=== PATIENT | female | born 2000 | race Caucasian/White ===

== ENCOUNTER 2024-11-23 09:28 | Emergency (ER) | payer BC, SELFPAY ==
[2024-11-23 09:33] VITALS: BP 149/86; PULSE 70; RESP 16; TEMP 36.4; O2SAT 100
--- OUTSIDE RECORDS SUMMARY | 2024-11-23 09:40 | XMS_ITS | Clinical Summary ---
Author Organization [facility] Address [address] [place] [address] Phone Care Team Providers Care Welfare Specialist Name Role Phone Unavailable Primary Care Provider Unavailabl e Allergies Active Allergy Reactions Criticality Noted Date Comments Nut Flavor Anaphylaxis High 07/13/2017 Medications PROAIR HFA 90 mcg/actuation inhaler INHALE 1-2 PUFFS PRIOR TO OR DURING EXERCISE FOR SHORTNESS OF BREATH 0 7 Active erythromycin (E-MYCIN) 250 mg tablet Take 250 mg by mouth. 0 Active clindamycin phosphate (CLEOCIN T) 1 % Gel APPLY TO AFFECTED AREA EVERY DAY 0 Active venlafaxine 37.5 mg Extended Release 24 hour tablet Take 37.5 mg by mouth. 0 Active spironolactone (ALDACTONE) 50 mg tablet Take 50 mg by mouth daily. Active sertraline (ZOLOFT) 25 mg tablet Take 25 mg by mouth daily. Active norgestimate-et hinyl estradioL 0.25 mg-35 mcg tablet Take 1 Tablet by mouth. 8 Active ondansetron (ZOFRAN) 4 mg Tablet Take 1 Tablet (4 mg) by mouth every 8 hours as needed for Nausea. 15 Tablet 0 Active Active Problems Problem Noted Date Diagnosed Date Exercise-induced asthma 07/13/2017 Immunizations Immunization Administration Dates Next Due (ADACEL/BOOSTRIX)(10 YR UP) TDAP VACCINE, 0.5ML, IM 05/05/2010 (INFANRIX)(6 WKS-6 YRS) DIPT HERIA, TETANUS TOXOIDS, AND ACCELLULAR PERTUSSIS VACCINE (DTAP), 0.5 ML IM 05/21/2004,03/31/2000,05/07/1999,03/12,01/08/1999 (IPOL)(6 WKS AND UP) POLIOVI AYAZ VACCINE, INACTIVATED (IPV), 3 DOSE, SUBCUT OR IM 05/21/2004,03/31/2000,05/07/1999,03/10 (M-M-R II/PRIORIX)(12 MO UP) MEASLES, MUMPS AND RUBELLA VIRUS VACCINE, 0.5 ML IM/SUBCUT 06/25/2007,11/12/1999 (ROTATEQ)(6-32 WKS) ROTAVIRU S LIVE, PENTAVALENT, 2 ML, 3 DOSE, ORAL 03/12/1999,01/08/1999 (VARIVAX)(12 MOS UP)VARICELL A VIRUS VACCINE (PF) 0.5 ML, SUB CUT 06/25/2007,11/12/1999 HIB, Unspecified Formulation 03/31/2000, 05/07/1999,03/12/1999,01/08 Hepatitis B Vaccine 07/30/1999,01/08/1999,1998 Meningococcal ACWY Vaccine, Unspecified Formulation 05/05/2010 Family History Relation Name Status Comments Brother 1 Alive Brother 2 Alive Father Alive Mother Alive Social History Tobacco Use Types Packs/Day Years Used Date Smoking Tobacco: Never Smokeless Tobacco: Never Alcohol Use Standard Drinks/Week Comments No 0 (1 standard drink = 0.6 oz pur e alcohol) Comments No Sex and Gender Information Value Date Recorded Sex Assigned at Not on file 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 Gender Identity Not on file Sexual Orientation Not on file Occupation Industry Job Start Date Job End Date Not on file Not on file Not on file Not on file Last Filed Vital Signs Vital Sign Reading Time Taken Comments Blood Pressure 114/74 07/03/2020 9:30 PM CDT Pulse 87 07/03/2020 9:30 PM CDT Temperature 37.5 C (99.5 F) 07/03/2020 9:30 PM CDT Respiratory Rate 18 07/03/2020 9:30 PM CDT Oxygen Saturation 99% 07/03/2020 9:30 PM CDT Inhaled Oxygen Concentration - - Weight 54.4 kg (120 lb) 07/03/2020 5:00 PM CDT Height 160 cm (5' 3 ) 07/03/2020 5:00 PM CDT Body Mass Index 21.26 07/03/2020 5:00 PM CDT Plan of Treatment Health Maintenance Due Date Last Done Comments PNEUMOCOCCAL VACCINE 0-64 YE ARS (1 of 2 - PCV) 2017 CERVICAL CANCER SCREENING 2019 DTAP/TDAP/TD VACCINES (7 - T d or Tdap) 05/05/2020 05/05/2010, 05/21/2004, 05/21/2004, Additional history exists INFLUENZA VACCINE (#1) 2024 HEPATITIS B VACCINES Completed 07/30/1999, 01/08/1999, 1998 HPV VACCINES Completed 04/28/2017, 07/18, 04/22/2016 Insurance MEDICAID [place] AETNA CHOICE POS II
--- OUTSIDE RECORDS SUMMARY | 2024-11-23 09:40 | XMS_ITS | Encounter Summary ---
Author Organization [facility] Address [address] Attn: Epic Prelude ADT ADY [place]ASILVA [address] Care Team Providers Care Ironer Or Presser Name Role Phone Sal Townsend DO Primary Care Provider Unavail able Encounter Details Date Type Department Care Team (Late st Contact Info) Description 1998 Inpatient Historical Ai Negron MD [address] [place] [id number] Single liveborn, born in hospital, delivered without mention of delivery (Primary Dx) Social History Tobacco Use Types Packs/Day Years Used Date Smoking Tobacco: Never Assessed Comments Unknown Sex and Gender Information Value Date Recorded Sex Assigned at Not on file 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 Gender Identity Not on file Sexual Orientation Not on file documented as of this encounter Plan of Treatment Not on file documented as of this encounter Visit Diagnoses Diagnosis Single liveborn, born in hospital, delivered without mention of delivery- Primary documented in this encounter Additional Health Concerns Infection Onset Date Last Indicated Resolved Time R/O COVID-19 07/03/2020 07/03/2020 07/03/2020 9:04 PM CDT documented as of this encounter Care Teams Ironer Or Presser Relationship Specialty Start Date End Date Sal Townsend DO PCP - General Pediatrics 12/15/10 05/07/15 documented as of this encounter
--- OUTSIDE RECORDS SUMMARY | 2024-11-23 09:40 | XMS_ITS | Clinical Summary ---
Author Organization [facility] Address [address] [place] [address] Care Team Providers Care Client Account Representative Name Role Phone Unavailable Primary Care Provider Unavailabl e Allergies Active Allergy Reactions Criticality Noted Date Comments Cashew Nut Oil Unknown 07/18/2018 Nuts Unknown 05/29/2016 Sesame Oil Unknown 07/18/2018 Medications cetirizine (ZYRTEC ALLERGY) 10 MG tablet Take 1 tablet by mouth daily as needed. 7 Active EPINEPHrine 0.3 MG/0.3ML injection Administer as needed for allergic reaction 6 Active norgestimate-eth inyl estradiol (SPRINTEC 28) 0.25-35 MG-MCG tablet Take 1 tablet by mouth daily. 8 Active tretinoin 0.1 % creamIndications :Acne, unspecified acne type Apply topically nightly at bedtime. 45 g 2 9 Active clindamycin 1 % gelIndications:A cne vulgaris APPLY TO AFFECTED AREA EVERY DAY 60 g 1 0 Active albuterol sulfate HFA (PROAIR HFA) 108 (90 Base) MCG/ACT inhalerIndicatio ns:Exercise-grant lynnette asthma ([facility]) Inhale 2 puffs into the lungs every 8 (eight) hours as needed for Wheezing or Shortness of breath. 1 Inhaler 3 0 Active [employer] ACNE FACE WASH 10 % LiquidIndication s:Acne vulgaris APPLY 1 APPLICATION TOPICALLY NIGHTLY. 187 g 2 1 Active ERYTHROMYCIN BASE 250 MG tabletIndication s:Acne vulgaris TAKE 1 TABLET BY MOUTH TWICE A DAY 60 tablet 2 03/15/202 1 Active VENLAFAXINE XR 37.5 MG 24 hr capsuleIndicatio ns:Anxiety TAKE 1 CAPSULE BY MOUTH EVERY DAY WITH BREAKFAST 30 capsule 2 1 Active Active Problems Problem Noted Date Diagnosed Date Exercise-induced asthma (HHS/HCC) 07/13/2017 Achilles tendinitis 04/28/2017 Nut allergy 04/22/2016 Resolved Problems Problem Noted Date Diagnosed Date Resolved Date Normal routine physical examination 05/06/2015 06/28/2020 Immunizations Name Administration Dates Next Due DTaP (Daptacel) 03/12/1999,01/08/1999 DTaP-IPV/Hib (Pentacel) 03/31/2000,05/07/1999 Dtap (Generic) 05/21/2004,03/31/2000,05/07/1999 HPV GARDASIL 9-VALENT 04/28/2017 HPV4 (Gardasil) 07/27/2016,04/22/2016 Hepatitis A (Generic) 07/27/2016,07/27/2016,04/18,05/06/2015 Hepatitis B (Generic: Adult) 07/30/1999, 07/30/1999,01/08/1999,01/08/1999 ,1998,1998 Hib (Generic) 03/31/2000,05/07/1999 Hib (PedvaxHIB)3 Dose 03/12/1999,01/08/1999 MMR 06/25/2007,11/12/1999 Menactra 05/06/2015 Meningococcal Vac A,C,Y,W-135 Sc 05/05/2010 Meningococcal(Mcv 4)Aka Menactra 05/05/2010 Polio IPV (Ipol) 03/10/1999 Polio Ipv (Generic) 05/21/2004,03/31/2000,1998,03/10/1999 Rotavirus (Rotarix) 03/12/1999,01/08/1999 Tdap (Generic) 05/05/2010 Varicella Vaccine 06/25/2007,11/12/1999 Family History Medical History Relation Comments UNKNOWN Father Anxiety Mother Depression Mother Relation Status Comments Father Alive Mother Alive Social History Tobacco Use Types Packs/Day Years Used Date Smoking Tobacco: Never Smokeless Tobacco: Never Alcohol Use Standard Drinks/Week Comments No 0 (1 standard drink = 0.6 oz pur e alcohol) AUDIT-C Answer Date Recorded Frequency of Alcohol Consumption Never 06/13/2019 Average Number of Drinks Not on file 019 Frequency of Binge Drinking Not on file 05/19 PHQ-2 Answer Date Recorded PHQ-2 Score 6 10/06/2019 Education Answer Date Recorded What is the highest level of school you have completed or the highest degree you have received? Some college, no degree 10/06/2019 Comments No Sex and Gender Information Value Date Recorded Sex Assigned at Female 10/06/2019 8:03 AM ADVANCED NURSING PROFESSOR Legal Sex Female 8:26 PM CDT Gender Identity Female 10/06/2019 8:03 AM ADVANCED NURSING PROFESSOR Sexual Orientation Straight 10/06/2019 8: 03 AM ADVANCED NURSING PROFESSOR Last Filed Vital Signs Vital Sign Reading Time Taken Comments Blood Pressure 110/72 03/27/2020 8:42 AM CDT Pulse 98 03/27/2020 8:42 AM CDT Temperature 36.7 C (98.1 F) 03/27/2020 8:42 AM CDT Respiratory Rate 16 03/27/2020 8:42 AM CDT Oxygen Saturation 96% 03/27/2020 8:42 AM CDT Inhaled Oxygen Concentration - - Weight 59.1 kg (130 lb 3.2 oz) 03/27/2020 8:42 A M CDT Height 160 cm (5' 3 ) 03/27/2020 8:42 AM CDT Body Mass Index 23.06 03/27/2020 8:42 AM CDT Plan of Treatment Health Maintenance Due Date Last Done Comments Cervical Cancer Screening Pap Smear (Age 21 to 29) Every 3 Years 1998 Cervical Cancer Screening 1998 Annual Physical 2001 Pneumococcal Vaccine: Pediatrics (0 to 5 Years) and At-Risk Patients (6 to 64 Years) (1 of 2 - PCV) 2004 Hepatitis C 2016 DTaP, Tdap and Td Vaccines (7 - Td or Tdap) 05/05/2020 05/05/2010, 05/21/2004, 03/31/2000, Additional history exists COVID-19 Vaccine ( - 2023- season) 2024 Influenza Adult (#1) 2024 Hepatitis B Vaccines Completed 07/30/1999, 07/30/1999, 01/08/1999, Additional history exists Meningococcal Vaccine Completed 05/06/2015, 010 HPV Vaccines Completed 04/28/2017, 07/18, 04/22/2016 Meningococcal B Vaccine Aged Out No l onger eligible based on patient's age to complete this topic RSV Immunizations Under 20 Months Aged Out No longer eligible based on patient's age to complete this topic Insurance MEDICAID AETNA
--- OUTSIDE RECORDS SUMMARY | 2024-11-23 09:40 | XMS_ITS | Encounter Summary ---
Author Organization [facility] Address [address] [place] [address] Care Team Providers Care Mattress Weaver Name Role Phone Sal Townsend DO Primary Care Provider Unavail able Encounter Details Date Type Department Care Team (Late st Contact Info) Description 1998 Outpatient Historical [facility] Pediatrics - Medical [address] [address] [address] Ai Negron MD 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
[2024-11-23 10:34] LABS: BEDSIDEPREGUCG Negative (Negative)
[2024-11-23 10:51] LABS: Add Urine Microscopic? YES; Appearance Urine Clear (Clear); Bacteria Urine None Seen /hpf; Bilirubin Urine Negative (Negative); Blood Urine 3+ (Negative); Color Urine Yellow (Yellow); Glucose Urine UA Negative (Negative); Ketones Urine Negative (Negative); Leukocyte Esterase Ur Negative LEU/UL (Negative); Nitrate Urine Negative (Negative); Non Pathogenic Casts 0-2; Protein Urine Negative (Negative); RBC Urine 0-2 /hpf (0-2); Specific Grav Ur 1.008 (1.001-1.035); Squamous Epithelial Cell Urine Occasional /hpf (Few); Urobilinogen Urine 0.2 mg/dL (<2.0); WBC Urine 0-5 /hpf (0-3); pH Urine 6.5 (5.0-9.0)
--- OUTSIDE RECORDS SUMMARY | 2024-11-23 12:44 | XMS_ITS | Encounter Summary ---
Author Organization [facility] Address [address] [place] [address] Care Team Providers Care Drill Press Set Up Operator Name Role Phone Sal Townsend DO Primary Care Provider Unavail able Encounter Details Date Type Department Care Team (Late st Contact Info) Description 1998 Outpatient Historical [facility] Pediatrics - Medical [place] [address] [address] Ai Negron MD 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
--- OUTSIDE RECORDS SUMMARY | 2024-11-23 12:44 | XMS_ITS | Clinical Summary ---
Author Organization 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
--- OUTSIDE RECORDS SUMMARY | 2024-11-23 12:44 | XMS_ITS | Encounter Summary ---
Author Organization [facility] Address [address] Attn: Epic Prelude ADT ADY DASILVA [address] Care Team Providers Care Boarding House Manager Name Role Phone Sal Townsend DO Primary Care Provider Unavail able Encounter Details Date Type Department Care Team (Late st Contact Info) Description 1998 Inpatient Historical Ai Negron MD [address] [place] [phone] Single liveborn, born in hospital, delivered without mention of delivery (Primary Dx) Social History Tobacco Use Types Packs/Day Years Used Date Smoking Tobacco: Never Assessed Comments Unknown Sex and Gender Information Value Date Recorded Sex Assigned at Not on file Legal Sex Female 3:00 AM MORNING NANNY Gender Identity Not on file Sexual Orientation [...] documented as of this encounter Care Teams Boarding House Manager Relationship Specialty Start Date End Date Sal Townsend DO PCP - General Pediatrics 12/15/10 05/07/15 documented as of this encounter
--- OUTSIDE RECORDS SUMMARY | 2024-11-23 12:44 | XMS_ITS | Clinical Summary ---
Author Organization [facility] Address [address] [place] [address] Care Team Providers Care Cellar Worker Name Role Phone Unavailable Primary Care Provider [...] (90 Base) MCG/ACT inhalerIndicatio ns:Exercise-grant lynnette asthma ([facility]) Inhale 2 puffs into the lungs every [...] Sex Assigned at Female 10/06/2019 8:03 AM COMPOSITION TILE LAYER Legal Sex Female 8:26 PM CDT Gender Identity Female 10/06/2019 8:03 AM COMPOSITION TILE LAYER Sexual Orientation Straight 10/06/2019 8: 03 AM COMPOSITION TILE LAYER Last Filed Vital Signs Vital Sign Reading [...]
--- NOTE | 2024-11-23 13:04 | ED_ITS ---
HPI - Female Genitourinary General Chief complaint: Vaginal Bleeding Stated complaint: unsure if heavy period or if having miscarriage Time Seen by Provider: 11/23/24 12:23 History of Present Illness HPI Narrative: 24-year-old otherwise healthy female presenting to the emergency department for evaluation of bright red vaginal bleeding and concern for possible . Patient recently finished control medication approximately 3 months prior and was previously regular on a estrogen containing control that she takes 3 weeks with a week of placebo. she has since finished taking this and no longer on it. She was concerned that she could be and did have sexual intercourse. She had 1 positive test that was done 5 days ago but since then has had multiple negative test. She has been having some abnormal vaginal bleeding with thick foul-smelling discharge but denies any fever, chills or urinary complaints. No clot passage or tissue passage. She has no abdominal complaints such as pain or cramping. Patient has not seen an OBGYN or had a previous to her knowledge. She is concerned she might have had a miscarriage and she previously was very regular with her cycles for last 3-4 months after her control. No history of fibroids or dysfunctional uterine bleeding. Related Data Allergies Allergy/AdvReac Type Severity Reaction Status Date / Time No Known Allergies Allergy Verified 11/23/24 09:29 Review of Systems 2 Review of Systems: as reviewed above in HPI Exam 2 Narrative: GENERAL: [Well-appearing, well-nourished, and in no acute distress.] HEAD: [Normocephalic, atraumatic.] EYES: [PERRLA and EOMI.] ENT: Nares clear, no rhinorrhea or epistaxis. Mucous membranes moist. NECK: Supple. CHEST: [Clear to auscultation. No respiratory distress.] HEART: [Regular rate and rhythm]. No murmur heard. [Normal peripheral pulses.] ABDOMEN: [Soft, nondistended], [nontender], [No rigidity or guarding] EXTREMITIES: Normal range of motion. [No edema.] SKIN: Warm, dry, no rash. NEURO: [No focal deficits]. Alert and oriented [x3.] PSYCH: [Normal mood and affect.] Course Vital Signs Vital signs: Vital Signs Temperature 36.4 C L 11/23/24 09:33 Pulse Rate 70 11/23/24 09:33 Respiratory Rate 16 11/23/24 09:33 Blood Pressure 149/86 H 11/23/24 09:33 Pulse Oximetry 100 11/23/24 09:33 Oxygen Delivery Room Air 11/23/24 09:33 Temperature 37.0 C 11/23/24 15:17 Pulse Rate 53 L 11/23/24 15:17 Respiratory Rate 18 11/23/24 15:17 Blood Pressure 124/79 11/23/24 15:17 Pulse Oximetry 100 11/23/24 15:17 Oxygen Delivery Room Air 11/23/24 09:33 MDM - Female Genitourinary MDM Narrative Medical decision making narrative: 24-year-old otherwise healthy female presenting with dysfunctional uterine bleeding symptoms, foul discharge and concern for possible . She had a positive test 5 days ago but since then has been multiple negative test. Has had intercourse and is concerned she might have had a miscarriage or . No abdominal pain or cramping. Her periods have usually been very regular but today she has been having for 3 days of heavy vaginal bleeding without clot passage. No history of fibroids or dysfunctional uterine bleeding. Her cycle is off cycle at this time. examination is reassuring, no vital concerns such as fever, hypoxia, tachycardia or significant blood pressure elevations. Urine test was negative, urinalysis without signs of infection. Blood work was obtained including a serum test given the uncertainty of her previous tests as well as a CBC and CMP. Laboratory studies showed no leukocytosis or anemia. Negative serum beta hCG level. Normal renal function. Went over and discussed the results with the patient and recommendations at this time for OBGYN outpatient evaluation for potential abnormal or dysfunctional uterine bleeding. Patient was comfortable with this plan of care and was stable for discharge home at this time with OBGYN referral. She was given return precautions. Medical Records Attestation: I reviewed the patient's medical records. Lab Data Attestation: I reviewed the patient's lab results. 11/23/24 13:13 11/23/24 13:13 Labs: Lab Results 11/23/24 11/23/24 11/23/24 Range/Units 10:25 10:29 13:13 WBC 5.5 (4.5-10.0) K/mm3 RBC 4.46 (4.2-5.4) M/mm3 Hgb 12.9 (12.0-15.0) g/dL Hct 38.2 (37.0-47.0) % MCV 85.7 (80-100) fl MCH 28.9 (26-34) pg MCHC 33.8 (32-36) g/dl RDW 13.1 (11.5-14.5) % Plt Count 264 (150-375) k/mm3 MPV 10.9 H (7.4-10.4) fl Immature Gran % (Auto) 0.2 (0-0.5) % Neut % (Auto) 46.4 (45.5-73.1) % Lymph % (Auto) 47.1 H (18.3-44.2) % [place] % (Auto) 5.6 (2.6-8.5) % Eos % (Auto) 0.5 (0-4.4) % Baso % (Auto) 0.2 (0.2-1.2) % Lymph # (Auto) 2.61 (0.9-3.2) K/mm3 [place] # (Auto) 0.3 (0.1-0.6) K/mm3 Eos # (Auto) 0.0 (0-0.3) K/mm3 Baso # (Auto) 0.0 (0.0-0.1) K/mm3 Abs Immat Gran (auto) 0.01 (0.00-0.031) K/mm3 Absolute Neuts (auto) 2.6 (1.3-6.7) K/mm3 Absolute Nucleated RBC 0.000 (0.0-0.012) K/mm3 Nucleated RBC % 0.0 (0.0-0.2) % Sodium 141 (137-145) mmol/L Potassium 3.9 (3.4-5.0) mmol/L Chloride 105 (98-107) mmol/L Carbon Dioxide 23 (22-30) mmol/L Anion Gap 13 H (4-12) mmol/L BUN 8 (7-17) mg/dL Creatinine 0.63 L (0.7-1.0) mg/dL Estim Creat Clear Calc 91 ml/min Estimated GFR > 60 (59 - ) Glucose 89 (65-110) mg/dL Calcium 9.4 (8.4-10.2) mg/dL Total Bilirubin 0.5 (0.2-1.3) mg/dL AST 26 (14-36) U/L ALT 20 (6-35) U/L Alkaline Phosphatase 47 (38-126) U/L Total Protein 8.0 (6.3-8.2) g/dL Albumin 4.7 (3.5-5.1) g/dL Serum HCG, Qual Negative Urine Color Yellow (Yellow) Urine Appearance Clear (Clear) Urine pH 6.5 (5.0-9.0) Ur Specific [place] 1.008 (1.001-1.035) Urine Protein Negative (Negative) mg/dL Urine Glucose (UA) Negative (Negative) mg/dL Urine Ketones Negative (Negative) mg/dL Ur Blood (Man) 3+ H (Negative) Urine Nitrate Negative (Negative) Urine Bilirubin Negative (Negative) Urine Urobilinogen 0.2 (<2.0) mg/dL Leukocyte Esterase Rfl Negative (Negative) IVETT/UL Urine RBC 0-2 (0-2) /hpf Urine WBC 0-5 (0-3) /hpf Ur Squamous Epith Cells Occasional (Few) /hpf Urine Bacteria None seen /hpf Urine Casts 0-2 POC Urine HCG, Qual Negative (Negative) Discharge Plan Discharge Clinical Impression: Dysfunctional uterine bleeding Patient Disposition: Home, Self-Care Condition: Stable Instructions: Antibiotic Form, Abnormal (Dysfunctional) Uterine Bleeding (ED), Dysmenorrhea (ED) Additional Instructions: You had a negative test, your labs are very good and did not show any significant blood loss or any concerns at this time. Please establish with an OBGYN for further care and re-evaluation. Return with any new or worsening concerns. Patient Language: Colombian Follow-up/Referrals: Mirian Fuller MD [Physician] - 1 Week ( abnormal uterine bleeding) UNKNOWN,DOCTOR [Primary Care Provider] - Time of Disposition: 15:06
[2024-11-23 13:07] VITALS: BP 139/82; PULSE 54; RESP 18; O2SAT 100
[2024-11-23 13:25] LABS: Basophils Percent Auto 0.2 % (0.2-1.2); Eosinophils Percent Auto 0.5 % (0-4.4); Hematocrit 38.2 % (37.0-47.0); Hemoglobin 12.9 g/dL (12.0-15.0); Immature Granulocyte Absolute 0.01 K/mm3 (0.00-0.031); Immature Granulocyte Percent A 0.2 % (0-0.5); Lymphocytes Absolute Auto 2.61 K/mm3 (0.9-3.2); Lymphocytes Percent Auto 47.1 % (18.3-44.2); Mean Corpuscular HGB Conc 33.8 g/dl (32-36); Mean Corpuscular Hemoglobin 28.9 pg (26-34); Mean Corpuscular Volume 85.7 fl (80-100); Mean Platelet Volume 10.9 fl (7.4-10.4); Monocytes Absolute Auto 0.3 K/mm3 (0.1-0.6); Monocytes Percent Auto 5.6 % (2.6-8.5); Neutrophils Absolute Auto 2.6 K/mm3 (1.3-6.7); Neutrophils Percent Auto 46.4 % (45.5-73.1); Platelet Count Result 264 k/mm3 (150-375); Red Blood Count 4.46 M/mm3 (4.2-5.4); Red Cell Distribution Width 13.1 % (11.5-14.5); White Blood Count 5.5 K/mm3 (4.5-10.0)
[2024-11-23 13:37] LABS: Alanine Aminotransferase 20 U/L (6-35); Albumin Level 4.7 g/dL (3.5-5.1); Alkaline Phosphatase 47 U/L (38-126); Anion Gap 13 mmol/L (4-12); Aspartate Amino Transferase 26 U/L (14-36); Bilirubin,Total 0.5 mg/dL (0.2-1.3); Blood Urea Nitrogen 8 mg/dL (7-17); Calcium 9.4 mg/dL (8.4-10.2); Carbon Dioxide 23 mmol/L (22-30); Chloride 105 mmol/L (98-107); Estimated CRCL calculation 91 ml/min; Estimated Glomerular Filt Rate > 60; Glucose 89 mg/dL (65-110); Potassium 3.9 mmol/L (3.4-5.0); Sodium 141 mmol/L (137-145)
[2024-11-23 13:44] LABS: SPREG INTERNAL CONTROL Positive; Serum Qual hCG Negative
--- NOTE | 2024-11-23 15:01 | PC.NURSE ---
Provider at bedside for update in plan of care at this time.
[2024-11-23 15:17] VITALS: BP 124/79; PULSE 53; RESP 18; TEMP 37; O2SAT 100
== END 2024-11-23 15:19 | disposition home or self-care (01) ==
PROVIDERS: Physician Assistant; Emergency Provider Student in an Organized Health Care Education/Training Program
DX: N93.8 Other specified abnormal uterine and vaginal bleeding (principal)
CPT/HCPCS: 36415; 80053; 81001; 81025; 84703; 85025; 99283